=== PATIENT | female | born 1990 | race Caucasian/White ===

== ENCOUNTER 2017-03-21 07:40 | Inpatient (IN) ==
[2017-03-21] MEDS ORDERED: Naloxone 0.4 MG/ML INJ IVP PRN (08:46)
[2017-03-21] MEDS ORDERED: Famotidine 20 MG/2 ML VIAL IVP PRN (08:46)
[2017-03-21] MEDS ORDERED: Ondansetron 4 MG/2 ML VIAL IVP PRN (08:46)
[2017-03-21] MEDS ORDERED: Metoclopramide 10 MG/2 ML VIAL IVP ONE (08:49)
[2017-03-21] MEDS ORDERED: Ringers Solution, Lactated 1,000 ML ONE (08:50)
[2017-03-21 08:57] LABS: Basophils % 0.2 %; Eosinophils # 0.1 K/mcL (0.0-0.6); Hematocrit 38.7 % (35.3-44.9); Immature Platelets 5.9 % (1.1-6.1); Lymphocytes # 1.9 K/mcL (0.6-4.6); Lymphocytes % 14.7 %; Mean Corpuscular HGB Conc 33.6 g/dL (31.6-35.5); Mean Corpuscular Hemoglobin 29.7 pg (28.0-33.3); Mean Corpuscular Volume 88.6 fL (83.0-100.0); Mean Platelet Volume 10.4 fL (9.4-12.4); Monocytes # 0.8 K/mcL (0.0-1.3); Monocytes % 5.9 %; Neutrophils # 9.8 K/mcL (1.6-8.9); Platelet Count 244 K/mcL (140-400); Red Blood Count 4.37 M/mcL (3.82-4.97); Red Cell Distribution Width 14.1 % (11.5-14.5); Segmented Neutrophils % 77.2 %
[2017-03-21] MEDS ORDERED: Ringers Solution, Lactated 1,000 ML IVC SCH (09:00)
[2017-03-21] MEDS ORDERED: *HR* FentaNYL (PF) 100 MCG/2 ML VIAL EP ONE (09:52)
[2017-03-21] MEDS ORDERED: Bupivacaine-MPF 0.25% 10 ML VIAL EP ONE (09:52)
[2017-03-21] MEDS ORDERED: Bupivacaine-MPF 0.25% 10 ML VIAL ONE (09:55)
[2017-03-21] MEDS ORDERED: Epidural Premix (fent/bupiv) 110 ML EP ONE (09:57)
[2017-03-21] MEDS ORDERED: Epidural Premix (fent/bupiv) 110 ML EP SCH (10:00)
--- NOTE | 2017-03-21 10:44 | Anesthesia Evaluation PreOp ---
Date of Encounter: 03/21/17 Time of Encounter: 09:45 - Past History Planned Operation: epidural Cardiac History: Denies any Significant Hx Pulmonary History: Denies Any Significant HX STRATEGIC SOURCING SPECIALIST History: Seizures (as a child none since 7 y/o) Other Medical History: Denies Any Significant HX Anesthesia History: No Prior Anesthetic Complications (1 vag delivery and a D&C no complications, denies family history of anes complications last epidural was one sided) : Yes Test: Positive Alcohol Use: none Drug use: none Medications and Allergies Allergies codeine Adverse Reaction (Verified 07/25/16 19:37) Hives - Meds/Allergy Pre-op Review Medications Reviewed: Yes Allergies Reviewed: Yes Beta Blockers on Current Med List: No Anesthesia Results - Labs 03/21/17 08:38 Anesthesia Exam 3 Vital Signs Time 945 BP 121/75 Pulse 96 Resp 16 O2 Sat fh tones 130's Height: 65 Weight: 162 pounds NPO (# of Hours): 12 hours Pain Scale: 8 Pain Scale Used: Numeric (1 - 10) - HEENT Pupil (Motor): Pupils equal Mallampati: III Teeth: Normal Oral Opening: Greater than 3 - STRATEGIC SOURCING SPECIALIST LOC: Oriented STRATEGIC SOURCING SPECIALIST Motor: Normal RUE, Normal LUE, Normal RLE, Normal LLE, Normal Face STRATEGIC SOURCING SPECIALIST Sensory: Normal: RUE, LUE, RLE, LLE, Face - Cardiac Rhythm: Regular Murmur: None JVD: No Carotid Bruit: No - Pulmonary Breath Sounds: bilateral Clear Respiratory Effort: Symmetrical Anesthesia Assess/Plan ASA Score: 2 Modified Basil Scale for Level of Consciousness: Cooperative, oriented, and tranquil Anesthetic Plan: Regional Monitoring Plan: Standard Monitors Recovery Plan: Other
--- NOTE | 2017-03-21 10:53 | Anesthesia Procedures ---
Date of Encounter: 03/21/17 Time of Encounter: 10:10 Procedures: Anesthesia - Epidural/Spinal Patient ID/Chart reviewed: Yes Patient examined: Yes OB Eval: Gestational age: 39 weeks OB Eval: : 4 OB Eval: Hx Para: 1 OB Eval: Dilated at (cm): 5 OB Eval: Contractions: Non-stressed pattern Consent Obtained: Yes Supplemental Oxygen: None/Room Air Site Prep: Aseptic Technique, Sterile prep and drape, Povidone-Iodine 1% Patient position: upright Local Anesthetic: Lidocaine 1% Amount of Local Anesthetic used: 3 Touhy Needle Gauge: 18 Touhy Needle Depth (cm): 5 Catheter Depth at Skin (cm): 12 Test Dose (1.5% Lido + Epi): Volume given (mls): 3 Test Dose Result: Negative Loading Dose: 0.25% Marcaine (mls): 5 Loading Dose: Fentanyl (mcg): 100 Loading Dose: Other: 3 ml saline Loading Dose Administered: Thru Catheter Infusion Med: 0.125% Bupivacaine w/ 2 mcg/ml Fentanyl Infusion Rate (mls/hr): [address]: Tegaderm, Tape Interspace Used: L3-L4 Loss of Resistance (GIULIANA): Yes (air) Blood: No CSF: No Paresthesia: No Procedure: 3 Vital Signs Time 1010 start 1016 test 1022 bolus 1036 finish BP 151/81 115/74 130/61 114/69 Pulse 97 88 91 92 Resp 18 16 16 16 O2 Sat 98 98 98 98 heart tones 130's throughout, patient tolerated well
--- NOTE | 2017-03-21 11:01 | OB Labor Progress Note ---
Date of Encounter: 03/21/17 Time of Encounter: 10:59 Labor Progress Note - Subjective Subjective: Pt comfortable with epidural. - Vital Signs Vital Signs: AF VSS - Cervix Cervix: 8/90/-1 - Heart Tones Heart Tones: RNST - Haugen Haugen: UC's q 3 min. - Interventions Interventions: AROM clear - Plan Plan: Expect
[2017-03-21] MEDS ORDERED: Oxytocin 20 units/ LR 1000 mL 20 UNIT/1,000 ML BAG IVC ONE ×3 (11:10→17:29)
--- NOTE | 2017-03-21 14:06 | OB/GYN Procedure Note ---
Delivery - Delivery Date: 03/21/17 Provider: Pipe Trujillo Intrapartum events: none Delivery induction: none Delivery monitor: external FHT, external uterine Anesthesia: epidural Estimated Blood Loss: 300 - Infant (s) Infant A Delivery Date: 03/21/17 Infant Delivery Time: 13:42 Presentation: vertex Position: KJ Route of delivery: Gender: Male Viability: Viable Pounds: 9 Ounces: 1 at 1 minute: 8 at 5 mins: 9 Shoulder Dystocia: not encountered Specimens collected: cord blood Placenta: spontaneous Cord: 3 umbilical vessels - Repair Laceration Description: Perineal - 1st Degree - Complications Delivery complications: none - Disposition Mom disposition: stable in LDR disposition: stable in LDR - Comments Comments: Pt s/p without complications.
--- NOTE | 2017-03-21 14:09 | OB/GYN History & Physical ---
Date of Encounter: 03/21/17 Time of Encounter: 14:06 Assessment and Plan (1) 39 weeks gestation of Current visit: Yes Status: Acute Pt at 39 weeks gestation presents in labor. Will admit and expect . History of Present Illness Chief complaint: Labor HPI: Ms. Givens is a 26 year old female female at 39 weeks EGA presents with c/ o labor. On arrival pt with uc's q 3 min and cvx 4-5 cm dilated. She had been 3 in office yesterday. Preg uncomplicated. Past Med Surg Social Fam HX - Past Medical History Source: patient Medical history: no medical history Psychiatric history: no psych history - Social History Smoking Status: Never smoker Smokeless Tobacco Status: No Alcohol use: none Drug use: none - Family History Mother Living Status: Still Living Hx Family Cardiac Disorders: Yes Obstetrical History - Pregnancies : 4 Para: 2 Term: 2 Medications and Allergies Allergies codeine Adverse Reaction (Verified 07/25/16 19:37) Hives Exam - Vital Signs Vital signs: Initial Vital Signs Pulse Resp BP 103 18 116/73 03/21/17 07:36 03/21/17 07:36 03/21/17 07:36 - Constitutional Constitutional: well developed, no acute distress - HEENT HEENT: EOMI, PERRL - Neck Neck exam: full ROM - Lungs Respiratory exam: CTAB - Cardiovascular Cardiovascular exam: RRR - Abdomen Abdomen: Present: gravid, non tender - Extremities Extremities exam: full ROM Deep Tendon Reflex Grade: 2+ Normal - Cervix Dilation: 4 Effacement: 80 Station: -2 - Uterus Uterus exam: Present: normal size Results Result Diagrams: 03/21/17 08:38 Abnormal lab results WBC 12.8 K/mcL (4.3-11.1) H 03/21/17 08:38 Neutrophils # 9.8 K/mcL (1.6-8.9) H 03/21/17 08:38 All other labs normal. - VTE Reasons for not Prescribing Prophylaxis: Medical contraindication
[2017-03-21] MEDS ORDERED: Oxytocin 20 units/ LR 1000 mL 20 UNIT/1,000 ML BAG IVC SCH (17:29)
[2017-03-21] MEDS ORDERED: Rho Immune Globulin 1,500 UNIT SYRINGE IM PRN (17:29)
[2017-03-21] MEDS ORDERED: Measles/Mumps/Rubella Vacc 0.5 ML VIAL SQ PRN (17:29)
[2017-03-21] MEDS: Acetaminophen 325 MG TABLET PO PRN (19:31)
[2017-03-22] MEDS: Acetaminophen 325 MG TABLET PO PRN (01:25)
[2017-03-22 03:01] LABS: Basophils % 0.3 %; Eosinophils # 0.2 K/mcL (0.0-0.6); Eosinophils % 1.3 %; Hematocrit 30.8 % (35.3-44.9); Immature Granulocytes % 0.7 % (0-4); Lymphocytes # 2.3 K/mcL (0.6-4.6); Lymphocytes % 19.6 %; Mean Corpuscular HGB Conc 35.1 g/dL (31.6-35.5); Mean Corpuscular Hemoglobin 30.9 pg (28.0-33.3); Mean Platelet Volume 10.4 fL (9.4-12.4); Monocytes % 8.8 %; Neutrophils # 8.2 K/mcL (1.6-8.9); Platelet Count 207 K/mcL (140-400); Red Cell Distribution Width 14.2 % (11.5-14.5); Segmented Neutrophils % 69.3 %
[2017-03-22 03:02] LABS: Hemoglobin 10.8 g/dL (11.5-15.4)
[2017-03-22] MEDS ORDERED: Prenatal Vit/FA 1 EACH TABLET PO SCH (09:00)
--- NOTE | 2017-03-22 09:48 | Discharge Summary ---
Date of Encounter: 03/22/17 Time of Encounter: 09:46 - Discharge Diagnosis (1) Status post vaginal delivery Priority: Primary Status: Acute - Discharge Medications Prescriptions: Ibuprofen [Motrin] 600 mg PO Q6HR PRN #60 tab PRN Reason: Pain Home Medications: Ibuprofen [Motrin] 600 mg PO Q6HR PRN #60 tab 03/22/17 [Rx] Allergies/Adverse Reactions: Allergies codeine Adverse Reaction (Verified 07/25/16 19:37) Hives Data Procedures and tests throughout hospitalization: Laboratory Tests 03/21/17 03/22/17 08:38 02:41 WBC 12.8 H 11.7 H RBC 4.37 3.50 L Hgb 13.0 10.8 L D Hct 38.7 30.8 L MCV 88.6 88.0 MCH 29.7 30.9 MCHC 33.6 35.1 RDW 14.1 14.2 Plt Count 244 207 MPV 10.4 10.4 Immature Gran % 1.0 0.7 Seg Neutrophils % 77.2 69.3 Lymphocytes % 14.7 19.6 Monocytes % 5.9 8.8 Eosinophils % 1.0 1.3 Basophils % 0.2 0.3 Neutrophils # 9.8 H 8.2 Lymphocytes # 1.9 2.3 Monocytes # 0.8 1.0 Eosinophils # 0.1 0.2 Basophils # 0.0 0.0 Immature Plt Fraction 5.9 Labs on day of discharge: Labs from last 24 hours 03/22/17 02:41 WBC 11.7 H RBC 3.50 L Hgb 10.8 L D Hct 30.8 L MCV 88.0 MCH 30.9 MCHC 35.1 RDW 14.2 Plt Count 207 MPV 10.4 Immature Gran % 0.7 Seg Neutrophils % 69.3 Lymphocytes % 19.6 Monocytes % 8.8 Eosinophils % 1.3 Basophils % 0.3 Neutrophils # 8.2 Lymphocytes # 2.3 Monocytes # 1.0 Eosinophils # 0.2 Basophils # 0.0 Date of admission: 03/21/17 07:44 Primary care physician: Alana Cope Consults: 03/21/17 17:29 Consult to [employer] [CONS] Routine Comment: Vaginal delivery, consult needed Discharging clinician: Drea Herrera Anticipated date of discharge: 03/22/17 - Patient Status Disposition: Home, Self-Care Condition: Good Functional capacity at discharge: independent ambulation Overall status at discharge: patient is progressing back to baseline - Discharge Instructions Follow Up With: Anatoliy-Alana Virk DO [Primary Care Provider] - - Diet and Activity Activity: resume usual activities as tolerated Diet: advance to your usual diet Hospital Course Reason for admission: active labor, IUP at term Delivery: Laceration: 1st degree Other procedures: none complications: none Discharge diagnosis: IUP at term delivered baby: male Time Attestation: Total time spent providing and/or coordinating discharge services: Time Spent: Less than 30 minutes Exam - Constitutional Vitals: Temp Pulse Resp BP Pulse Ox 98.1 F 80 16 123/77 97 03/22/17 08:10 03/22/17 08:10 03/22/17 08:10 03/22/17 08:10 03/22/17 08:10 General appearance IM: A&O X 3, no acute distress - Respiratory Respiratory exam: Present: CTAB. Absent: respiratory distress - Cardiovascular Cardiovascular exam IM: Present: RRR. Absent: irregular rhythm - GI/Abdominal GI/Abdominal exam IM: normal bowel sounds - Rectal Rectal exam: deferred - Uterine Tone: Firm - Extremities Exam Extremities exam IM: Absent: calf tenderness
[2017-03-22] MEDS ORDERED: Ibuprofen 600 MG TABLET PO ONE (10:54)
[2017-03-22 12:43] VITALS: BP 109/68
== END 2017-03-22 15:09 | disposition home or self-care (01) | DRG 560 ==
LOC: 1NENULAB → 1NENUOBS 15:58
PROVIDERS: ADMIT Obstetrics & Gynecology; ATTEND Obstetrics & Gynecology

== ENCOUNTER 2020-07-21 13:07 | Inpatient (IN) ==
[2020-07-21] MEDS ORDERED: Famotidine 20 MG/2 ML VIAL IVP PRN (13:28)
[2020-07-21] MEDS ORDERED: Metoclopramide 10 MG/2 ML VIAL IVP PRN (13:28)
[2020-07-21] MEDS ORDERED: *HR* FentaNYL (PF) 100 MCG/2 ML VIAL IVP PRN (13:28)
[2020-07-21] MEDS ORDERED: Ondansetron 4 MG/2 ML VIAL IVP PRN (13:28)
[2020-07-21] MEDS ORDERED: Naloxone 0.4 MG/ML INJ IVP PRN (13:28)
[2020-07-21] MEDS ORDERED: Lidocaine 1% 20 ML MDV INFILT PRN (13:28)
[2020-07-21] MEDS: Ringers Solution, Lactated 1,000 ML IVC SCH ×3 (13:50→20:05)
[2020-07-21] MEDS: Oxytocin 20 units/ LR 1000 mL 20 UNIT/1,000 ML BAG IVC SCH ×2 (13:51→22:01)
[2020-07-21 13:52] LABS: Basophils % 0.3 %; Eosinophils # 0.2 K/mcL (0.0-0.6); Eosinophils % 1.5 %; Hematocrit 32.9 % (35.3-44.9); Hemoglobin 10.7 g/dL (11.5-15.4); Immature Granulocytes % 0.6 % (0-4); Lymphocytes # 1.9 K/mcL (0.6-4.6); Lymphocytes % 16.9 %; Mean Corpuscular HGB Conc 32.5 g/dL (31.6-35.5); Mean Corpuscular Hemoglobin 27.1 pg (28.0-33.3); Mean Corpuscular Volume 83.3 fL (83.0-100.0); Mean Platelet Volume 10.5 fL (9.4-12.4); Monocytes % 9.1 %; Platelet Count 305 K/mcL (140-400); Red Blood Count 3.95 M/mcL (3.82-4.97); Red Cell Distribution Width 15.4 % (11.5-14.5); Segmented Neutrophils % 71.6 %; White Blood Count 11.2 K/mcL (4.3-11.1)
[2020-07-21 13:55] LABS: Amphetamine Screen,Urine Negative ng/mL (Cutoff=1000); Barbiturate Screen,Urine Negative ng/mL (Cutoff=200); Benzodiazepines Screen,Urine Negative ng/mL (Cutoff=200); Cannabinoid Screen,Urine Negative ng/mL (Cutoff = 50); Cocaine Screen,Urine Negative ng/mL (Cutoff= 300); Opiate Screen,Urine Negative ng/mL (Cutoff=300); Phencyclidine Screen,Urine Negative ng/mL (Cutoff=25)
[2020-07-21] MEDS ORDERED: EPHEDrine 50 MG/ML VIAL IVP PRN (14:16)
[2020-07-21] MEDS ORDERED: Epidural Premix (fent/bupiv) 110 ML EP SCH (14:30)
[2020-07-21] MEDS ORDERED: Acetaminophen 325 MG TABLET PO PRN (22:59)
[2020-07-21] MEDS ORDERED: Oxytocin 20 units/ LR 1000 mL 20 UNIT/1,000 ML BAG IVC SCH (22:59)
[2020-07-21] MEDS ORDERED: Ibuprofen 600 MG TABLET PO PRN (22:59)
[2020-07-21] MEDS ORDERED: Oxytocin 20 units/ LR 1000 mL 20 UNIT/1,000 ML BAG IVC ONE (22:59)
[2020-07-21] MEDS ORDERED: Rho Immune Globulin 1,500 UNIT SYRINGE IM PRN (22:59)
[2020-07-21] MEDS ORDERED: Measles/Mumps/Rubella Vacc 0.5 ML VIAL SQ PRN (22:59)
[2020-07-22] MEDS: Prenatal Vit/FA 1 EACH TABLET PO SCH (07:32)
[2020-07-22 08:56] LABS: Basophils % 0.3 %; Eosinophils # 0.1 K/mcL (0.0-0.6); Eosinophils % 1.1 %; Hematocrit 29.1 % (35.3-44.9); Hemoglobin 9.2 g/dL (11.5-15.4); Immature Granulocytes % 0.7 % (0-4); Lymphocytes # 2.2 K/mcL (0.6-4.6); Lymphocytes % 18.1 %; Mean Corpuscular HGB Conc 31.6 g/dL (31.6-35.5); Mean Corpuscular Hemoglobin 27.1 pg (28.0-33.3); Mean Corpuscular Volume 85.6 fL (83.0-100.0); Mean Platelet Volume 10.6 fL (9.4-12.4); Monocytes # 0.9 K/mcL (0.0-1.3); Monocytes % 7.3 %; Neutrophils # 8.9 K/mcL (1.6-8.9); Platelet Count 244 K/mcL (140-400); Red Cell Distribution Width 15.4 % (11.5-14.5); Segmented Neutrophils % 72.5 %; White Blood Count 12.3 K/mcL (4.3-11.1)
[2020-07-22] MEDS ORDERED: Lanolin 7 G OINT...G. TP PRN (19:56)
[2020-07-23] MEDS: Prenatal Vit/FA 1 EACH TABLET PO SCH (07:51)
[2020-07-23 08:18] VITALS: BP 128/84
== END 2020-07-23 13:50 | disposition home or self-care (01) | DRG 807 ==
LOC: 1NENULAB 13:07 → 1NENUOBS 22:58
PROVIDERS: ADMIT Obstetrics & Gynecology; ATTEND Obstetrics & Gynecology